=== PATIENT | female | born 1990 | race Caucasian/White ===

== ENCOUNTER → 2020-05-06 10:30 | Outpatient (CLI) | payer OTHER, SELFPAY ==
[2020-05-11 03:07] LABS: Onion <0.10 kU/L (Class 0); Walnut, (Food) <0.10 kU/L (Class 0)
[2020-05-11 07:29] LABS: Gluten <0.10 kU/L (Class 0)
== END ==
PROVIDERS: Referring Provider Otolaryngology Otolaryngology/Facial Plastic Surgery; Visit Provider Otolaryngology Otolaryngology/Facial Plastic Surgery
DX: T78.40XA Allergy, unspecified, initial encounter (principal)
CPT/HCPCS: 36415; 86003

== ENCOUNTER → 2020-12-19 15:38 | Outpatient (CLI) | payer OTHER, SELFPAY ==
--- NOTE | 2020-12-19 15:43 | CT_ITS ---
STUDY: CT ABDOMEN WITH CONTRAST REASON FOR EXAM: Female, 30 years old. Umbilical pain -- oral and IV oontrast RADIATION DOSAGE (If Supplied By Facility): CTDIvol = ( 14.74 ) mGy, DLP = ( 319.51 ) mGycm TECHNIQUE: Transaxial images were obtained post I.V. administration of Oral and amp; IV Readi-CAT and amp; 100mL Isovue-300, and IV contrast. Sagittal and coronal images were reconstructed. Individualized dose optimization techniques were used for this CT. COMPARISON: None. FINDINGS: The visualized lung bases are unremarkable. The visualized portions of the heart are within normal limits. Normal liver. Normal gallbladder and extrahepatic biliary system. Normal spleen. Normal pancreas. Normal bilateral adrenal glands. Normal right kidney. Normal left kidney. Large amount of residual food material is seen within the stomach. Normal small intestine. Normal colon. The appendix is visualized and appears normal. Normal abdominal aorta. Normal inferior vena cava. Normal retroperitoneum. Normal abdominal wall. Normal osseous structures. CT/Abdomen WITH IV Contrast IMPRESSION: Large amount of retained food particles within the stomach. Electronically Signed: David Rod MD at 9:33 EDT , Service support ,
== END ==
PROVIDERS: Referring Provider Surgery; Visit Provider Surgery
DX: R10.33 Periumbilical pain (principal)
CPT/HCPCS: 74160; Q9967

== ENCOUNTER 2020-12-22 05:58 | Day surgery (SDC) | payer OTHER, SELFPAY ==
[2020-12-22] VITALS (7 sets, daily range): BP systolic 93–127; BP diastolic 53–80; PULSE 59–80; RESP 14–18; TEMP 36.2–36.7; O2SAT 98–100; BMI 22.3
--- NOTE | 2020-12-22 | GASB_PTH ---
PATIENT: JESE MAC LOC: EN U#:[id number] AGE/SX: 30/F ROOM: RE12/22/[address]: Dr. Kade Cox MD : 1990 BED: DIS: 12/22/2020 SPEC #: [id number] RECD: 12/22/20 12:04 STATUS: ALETA CAREN #: [id number] EMILY: 12/22/20 00:[address]: Kade Cox DEPT: SURGICAL PATHOLOGY RECD BY: Matt Huff ENTERED: 12/22/20 12:36 SP TYPE: Gastric Bx OTHR DR: Alma Primary Care Phys Tissues: A - Gastric mucous membrane B - Esophageal mucous membrane C - Esophageal mucous membrane D - COLON BIOPSY Procedures: Special Stain Group II Surgery Specimen Level IV Alcian Blue/PAS (control) HEADER OPERATION: Colonoscopy, EGD ([facility] [place]) PRE-OP DIAGNOSIS: Umbilical pain, constipated, bright red blood per rectum, anal itching, dark stools TISSUE SUBMITTED: A ? Antrum biopsy for H. pylori and path, B ? Distal esophagus biopsy, C ? Mid esophagus biopsy, D ? Random colonic biopsy MICROSCOPIC DIAGNOSIS A. Gastric antrum, biopsy: Mild chronic gastritis. See comment. B. Distal esophagus, biopsy: Fragments of squamous mucosa with changes consistent with reflux. No evidence of goblet cell metaplasia. See comment. C. Mid esophagus, biopsy: Fragments of squamous mucosa with no pathologic change. D. Colon, random biopsy: Focal hyperplastic change. AM:suyapa 12/25/2020 COMMENT A. The results of immunohistochemistry for Helicobacter pylori will be reported separately ([id number]). B. Alcian blue/PAS stain with matched control supports the above diagnosis. MICROSCOPIC DESCRIPTION Slides are reviewed. GROSS DESCRIPTION A - Received in fixative is one container labeled with the patient's name and designated antrum biopsy. The specimen consists of one irregular fragment of light vale soft tissue that measures 0.4 x 0.4 x 0.1 cm. The specimen is totally submitted in one cassette. B - Received in fixative is one container labeled with the patient's name and designated distal esophagus biopsy. The specimen consists of multiple irregular fragments of light vale soft tissue that in aggregate measure 0.5 x 0.2 x 0.1 cm. The specimen is totally submitted in one cassette. C - Received in fixative is one container labeled with the patient's name and designated mid esophagus biopsy. The specimen consists of multiple irregular fragments of light vale soft tissue that in aggregate measure 0.4 x 0.4 x 0.1 cm. The specimen is totally submitted in one cassette. D - Received in fixative is one container labeled with the patient's name and designated random colonic biopsy. The specimen consists of multiple irregular fragments of light vale soft tissue that in aggregate measure 1 x 0.6 x 0.1 cm. The specimen is totally submitted in one cassette. / HOLLIE:suyapa 12/22/20 TC:3 CPT: 08314 x4, 62536
--- NOTE | 2020-12-22 06:13 | HP.PCM_ITS ---
History and Physical Date of Admission: 12/22/20 Addendum: A CT scan obtained demonstrates significant amount of food retention within the stomach. The exam is otherwise unremarkable. I recommended the patient consideration for adding an esophagogastroduodenoscopy with possible biopsy or polypectomy in addition to the planned colonoscopy. She will instructed us as to how she would like to proceed. Kade Cox M.D., F.A.C.S. 12/21/20 1349<Electronically signed by Kade Cox MD>Date Kade Cox MD cc: ~*Signed Intake Vital Signs 12/12/20 15:13 Height 5 ft 4 in Weight: 130 lb BMI 22.3 BP 150/95 H Blood Pressure Location Rt brachial Position Sitting Respiration 16 Intake Visit Reasons: UMBILICAL HERNIA Chief Complaint: umbilical hernia and rectal bleeding Senior Litigation Paralegal Required: No Is patient in pain?: Yes Allergies amoxicillin Allergy (Mild, Verified 12/12/20 15:11) Rash Medications Lactobacillus reuteri 100 million cell chewable tablet cell PO 12/12/20 [History Confirmed 12/12/20] levocetirizine 5 mg tablet 5 mg PO DAILY 12/12/20 [History Confirmed 12/12/20] norethindrone 1 mg-ethinyl estradiol 20 mcg (24)-iron 75 mg (4) tablet tablet PO 12/12/20 [History Confirmed 12/12/20] [facility] Medical History (Updated 12/12/20 @ 18:[address] Kade Cox MD) Allergies Anal itching Bright red blood per rectum Constipated Umbilical pain Surgical History H/O wisdom tooth extraction Family History Grandmother Diabetes Father Hypertension Social History Smoking Status: Never smoker alcohol intake: current alcohol intake frequency: a few times a week HPI HPI HPI: JESE MAC, is a 30 F who presents to the office today for surgical consultation regarding a symptomatic umbilical hernia and intermittent rectal bleeding. The patient is referred by Dr. Madan Garza and a written copy of my surgical consult recommendations will return to him. Patient notes a couple separate issues. For a couple weeks she has had a pinching pain noted to the umbilicus. She did have Covid-19 with coughing. She herself cannot feel a mass or bulge. For a longer period of time she has had intermittent rectal bleeding. By report she had a colonoscopy approximately 6 years ago. She has been diagnosed as having IBS. She has significant constipation sometimes not moving her bowels for up to a week. She complains of burning at the anus and occasional bright red blood. What is of note is that more recently she is also had 3 separate episodes of very dark stools. She does not note any particular indigestion. No epigastric pain. She does not take any acid reducing medications. She has not had any nausea or vomiting. She otherwise enjoys good health. She is able to run for exercise. She is not had any unexpected weight loss. ROS General General: No weight change, appetite, fatigue, colon cancer, breast cancer or weakness HEENT HEENT: No difficulty swallowing, eye injury, eye surgery, swollen glands or hoarseness Endo Endocrine: No thyroid disease, diabetes mellitus, thyroid cancer, Hair loss, heat intolerance or cold intolerance Skin Skin: No rash or changing moles Breast Breast: No left breast lump, right breast lump, nipple discharge, breast pain, abnormal mammogram, abnormal US or breast enlargement Musc Musculoskeletal: No back problems, arthritis, rheumatoid arthritis, gout or joint pain Cardio Cardiovascular: No murmur, pacemaker, heart disease, atrial fibrillation, high blood pressure, heart attack, heart stent, palpitations, shortness of breat with exertion or chest pain Psych Psychiatric: No depression, anxiety or hearing voices Resp Respiratory: No shortness of breath, No sleep apnea, No cough, No COPD, Yes asthma, No emphysema and No wheezing Gastro Gastrointestinal: Yes abdominal pain, No nausea or vomiting, Yes diarrhea, Yes constipation, Yes blood in stool, No acid reflux, Yes hemorrhoids, No ulcers, No gallbladder problem and Yes black,tarry stools [place] Hematologic: No blood thinners, No blood disorders, No bleeding, No anemia and No blood clots Neuro Neurologic: No system reviewed and no additional complaints, except as documented, No as per HPI, No abnormal gait, No abnormal hearing, No abnormal movements, No abnormal speech, No behavioral changes, No burning sensations, No confusion, No convulsions, No disequilibrium, No dizziness, No localized weakness, No frequent falls, No headache(s), No lack of coordination, No loss of vision, No memory loss, No numbness, No other visual disturbances, No radicular pain, No restless legs, No sensory deficit, No syncope, No tingling, No tremor(s), No weakness and No other Exam Const General: cooperative, healthy appearing, comfortable, no acute distress and well developed Nutritional Appearance: average body habitus Orientation: awake [facility] Head: normal to inspection Eyes General: appearance normal, both eyes and all related structures Resp Effort & Inspection: normal respiratory effort Auscultation: clear to auscultation bilaterally Cardio Rate: regular rate Rhythm: regular rhythm GI Palpation: soft and no hepatosplenomegaly Other: Focal tenderness at the umbilicus, not able to palpate or visualize a di stinct defect, slightly tender just superior to the right of the umbilicus. No particular focal mass nothing reducible. The patient is uncomfortable when she is upright and having the area checked. She is less uncomfortable supine. No rebound or guarding. Normal bowel sounds On clinical exam the patient is noted to have stool in her colon particularly the sigmoid colon is easily palpable External anus not remarkable. No external hemorrhoids. No gross bleeding identified. Digital exam some mild internal hemorrhoids. No obvious palpable fissure. No extreme discomfort to exam. No blood on the examining glove. Musc Cervical Spine: normal cervical lordosis Skin General: no rashes or lesions noted Neuro General: patient alert, patient awake and patient oriented x3 Extrem General: no calf tenderness Psych Appearance: grossly normal COVID (Procedure Consent) Procedure Criteria Procedure Criteria: Yes Elective The surgeon/proceduralist and patient have discussed in detail the risk of exposure to and/or potential harm posed by the COVID-19 virus with having a surgery/procedure at this time versus the risk of delaying the surgery/procedure. It is not possible to know either the risk of de laying the surgery or procedure or chance of getting an infection with perfect accuracy, but a joint decision was made between the patient and the surgeon/proceduralist to proceed at this time with the scheduled surgery/procedure as indicated on the consent form. Assessment and Plan Assessment and Plan (1) Umbilical pain: Status: Acute (2) Constipated: Status: Acute Qualifiers: Constipation type: unspecified constipation type Qualified Code(s): K59.00 - Constipation, unspecified (3) Bright red blood per rectum: Status: Acute (4) Anal itching: Status: Acute (5) Dark stools: Status: Acute Orders: Orders: Abdomen WITH IV Contrast Today R10.33 Colonoscopy Today K59.00, K62.5, L29.0 Plan - Dr. Kade Cox MD: 30-year-old female with a variety of presenting concerns. More recently she has had very focal pain to the umbilicus. She did have COVID-19 and was doing a significant amount of coughing. Clinically she is tender to palpation right of the umbilicus but I am not able to feel a mass. Patient might have a very small umbilical defect but I cannot clinically decipher that at this time. I do recommend abdominal CT to evaluate the abdominal wall and confirm or not a intra-abdominal process at that site. Change of bowel habits with 3 episodes of dark-colored stools. This seems somewhat unusual out of place for her presentation. She does not have any other upper GI symptoms. I offered her consideration for possibly adding an esophagogastroduodenoscopy onto her colonoscopy. She will consider the benefit risk. Anal discomfort. Rectal bleeding. Dark-colored stools. Severe constipation. On my clinical examination I am not detecting anything immediately at the anus. I do recommend to her a colonoscopy for very careful inspection of the bowel biopsy if indicated and careful inspection of the anal rectal area. She has had an opportunity to ask and have questions answered. She is interested in pursuing that evaluation. Pending results of the above testing the patient might benefit from a umbilical exploration/hernia repair. She is focally tender at that site and might have a very small defect. We will follow as appropriate and I appreciate the opportunity of assisting with her surgical care Copy: Dr. Madan Cox M.D., F.A.C.S. Coding Level of Care Code 49674 Diagnoses Umbilical pain R10.33 Constipated K59.00 Constipation type: unspecified constipation type Bright red blood per rectum K62.5 Anal itching L29.0 Dark stools R19.5 See the above addendum. The CT scan of the abdomen did not show an umbilical hernia. It demonstrated significant amount of retained food within the stomach. After discussion with the patient we will add a esophagogastroduodenoscopy to her colonoscopy and attempt to try to identify source of dark-colored stools anal itching bright red stools and umbilical pain. It is still possible that a small umbilical defect is present that the CAT scan cannot image Kade Cox M.D., F.A.C.S.
[2020-12-22 06:28] LABS: Internal QC Validated? YES +Cl - CLEAR BKGD; Pregnancy, Urine Negative Negative
[2020-12-22] MEDS: Lactated Ringers 1,000 ML 100 ML IV (06:40)
--- NOTE | 2020-12-22 07:00 | IMM_PTH ---
PATIENT: JESE MAC LOC: EN U#:[id number] AGE/SX: 30/F ROOM: RE12/22/[address]: Dr. Kade Cox MD : 1990 BED: DIS: 12/22/2020 SPEC #: [id number] RECD: 12/22/20 13:44 STATUS: ALETA RELuis Daniel #: [id number] EMILY: 12/22/20 07:[address]: Kade Cox DEPT: IMMUNOHISTOCHEMISTRY RECD BY: Jasmyn Rush ENTERED: 12/22/20 13:45 SP TYPE: IMMUNO OT DR: No Primary Care Phys Tissues: A - Stomach, NOS Procedures: H Pylori (initial) PHYSICIAN & INSTITUTION [place] [id number] SPECIMEN INFORMATION: Tissue Source: A ? Antrum biopsy Clinical Info: Umbilical pain, constipated, bright red blood per rectum, anal itching, dark stools Specimen Number: [id number] CPT code: 59605 METHODOLOGY: Deparaffinized sections of prefer/formalin-fixed tissue or PAP/DQ stained slides are incubated with monoclonal/polyclonal antibodies/oligonucleotide probes. Localization is made via biotin free immunoperoxidase method. Appropriate controls are performed and reacted as expected. Results on target cell population are indicated in the following table: RESULTS: ANTIBODY / CLONE RESULT Block A H Pylori (polyclonal) negative These tests were developed and their performance characteristics determined by [facility]. They may not have been cleared or approved by the U.S. Food and Drug Administration. The FDA has determined that such clearance or approval is not necessary. INTERPRETATION: A. Antrum biopsy: Negative for Helicobacter pylori organisms. AM:suyapa 12/26/2020
--- NOTE | 2020-12-22 07:28 | OP.EGD_ITS ---
Patient Name: Daylin High Procedure Date: 12/22/2020 6:50 AM Date of : 1990 Age: 30 Procedure: Upper GI endoscopy Indications: Periumbilical abdominal pain Providers: Kade Cox MD Medicines: See the Anesthesia note for documentation of the administered medications Complications: No immediate complications. Procedure: Pre-Anesthesia Assessment: - Prior to the procedure, a History and Physical was performed, and patient medications and allergies were reviewed. The patient's tolerance of previous anesthesia was also reviewed. The risks and benefits of the procedure and the sedation options and risks were discussed with the patient. All questions were answered, and informed consent was obtained. Prior Anticoagulants: The patient has taken no previous anticoagulant or antiplatelet agents. ASA Grade Assessment: I - A normal, healthy patient. After reviewing the risks and benefits, the patient was deemed in satisfactory condition to undergo the procedure. After obtaining informed consent, the endoscope was passed under direct vision. Throughout the procedure, the patient's blood pressure, pulse, and oxygen saturations were monitored continuously. The gastroscope was introduced through the mouth, and advanced to the second part of duodenum. The upper GI endoscopy was accomplished without difficulty. The patient tolerated the procedure well. Scope In: 7:00:24 AM Scope Out: 7:06:23 AM Total Procedure Duration Time 0 hours 5 minutes 59 seconds Findings: A small hiatal hernia was present. The distal esophagus was normal. Biopsies were taken with a cold forceps for histology. The middle third of the esophagus was normal. Biopsies were taken with a cold forceps for histology. The entire examined stomach was normal. Biopsies were taken with a cold forceps for histology. The examined duodenum was normal. Biopsies were taken with a cold forceps for histology. Impression: - Small hiatal hernia. - Normal distal esophagus. Biopsied. - Normal middle third of esophagus. Biopsied. - Normal stomach. Biopsied. - Normal examined duodenum. Biopsied. Recommendation: - Discharge patient to home. - Resume previous diet. - Continue present medications. - Await pathology results. - Telephone my office for pathology results in 1 week. Procedure Code(s): --- Professional --- 53835, Esophagogastroduodenoscopy, flexible, transoral; with biopsy, single or multiple Diagnosis Code(s): --- Professional --- K44.9, Diaphragmatic hernia without obstruction or gangrene R10.33, Periumbilical pain CPT copyright 2017 [employer]. All rights reserved. The codes documented in this report are preliminary and upon sap enterprise portal consultant review may be revised to meet current compliance requirements. Kade Cox MD 12/22/2020 7:27:53 AM This report has been signed electronically. Number of Addenda: 0 Note Initiated On: 12/22/2020 6:50 AM
--- NOTE | 2020-12-22 07:29 | OP.CCLET_ITS ---
12/22/2020 Gloria Post [facility] [address] [place] [address] Re : Upper GI endoscopy procedure for Replaced By [facility] Dear Dr. Post This procedure was performed on Tuesday, December 22, 2020. My impressions and recommendations are as follows: Impressions : - Small hiatal hernia. - Normal distal esophagus. Biopsied. - Normal middle third of esophagus. Biopsied. - Normal stomach. Biopsied. - Normal examined duodenum. Biopsied. Recommendations : - Discharge patient to home. - Resume previous diet. - Continue present medications. - Await pathology results. - Telephone my office for pathology results in 1 week. My findings are described in the full procedure note, which is enclosed. If I can be of further assistance, please feel free to contact me at Doctor phone number(s): Work: . Sincerely, Kade Cox MD 12/22/2020 7:27:53 AM This report has been signed electronically.
--- NOTE | 2020-12-22 07:35 | OP.CCLET_ITS ---
12/22/2020 Gloria Post [facility] [address] [place] [address] Re : Colonoscopy procedure for [facility] Dear Dr. Post This procedure was performed on Tuesday, December 22, 2020. My impressions and recommendations are as follows: Impressions : - Non-thrombosed internal hemorrhoids and internal hemorrhoids (Grade I) found on digital rectal exam. - The entire examined colon is normal. Biopsied. - Tortuous colon. Recommendations : - Discharge patient to home. - Resume previous diet. - Continue present medications. - Flagyl (metronidazole) 250 mg PO TID for 5 days. Because of itching and bleeding will treat with short course metronidazole If symptoms persistent, consider suppositories or diltiazem cream - Repeat colonoscopy at age 49 for screening purposes. My findings are described in the full procedure note, which is enclosed. If I can be of further assistance, please feel free to contact me at Doctor phone number(s): Work: . Sincerely, Kade Cox MD 12/22/2020 7:35:06 AM This report has been signed electronically.
--- NOTE | 2020-12-22 07:35 | OP.COLON_ITS ---
Patient Name: Daylin High Procedure Date: 12/22/2020 7:06 AM Date of : 1990 Age: 30 Procedure: Colonoscopy Indications: Rectal bleeding Providers: Kade Cox MD Medicines: See the Anesthesia note for documentation of the administered medications Patient Profile: Last Colonoscopy: none. The patient's first colonoscopy is today. Complications: No immediate complications. Procedure: Pre-Anesthesia Assessment: - Prior to the procedure, a History and Physical was performed, and patient medications and allergies were reviewed. The patient's tolerance of previous anesthesia was also reviewed. The risks and benefits of the procedure and the sedation options and risks were discussed with the patient. All questions were answered, and informed consent was obtained. Prior Anticoagulants: The patient has taken no previous anticoagulant or antiplatelet agents. ASA Grade Assessment: I - A normal, healthy patient. After reviewing the risks and benefits, the patient was deemed in satisfactory condition to undergo the procedure. After I obtained informed consent, the scope was passed under direct vision. Throughout the procedure, the patient's blood pressure, pulse, and oxygen saturations were monitored continuously. The Colonoscope was introduced through the anus and advanced to the cecum, identified by appendiceal orifice and ileocecal valve. The colonoscopy was performed without difficulty. The patient tolerated the procedure well. The quality of the bowel preparation was good. The ileocecal valve and the appendiceal orifice were photographed. Scope In: 7:09:59 AM Scope Withdrawal Time 0 hours 6 minutes 2 seconds Scope Out: 7:23:01 AM Total Procedure Duration Time 0 hours 13 minutes 2 seconds Findings: The digital rectal exam findings include non-thrombosed internal hemorrhoids and internal hemorrhoids (Grade I). The colon (entire examined portion) appeared normal. Biopsies for histology were taken with a cold forceps from the entire colon for evaluation of microscopic colitis. The colon (entire examined portion) was moderately tortuous. Impression: - Non-thrombosed internal hemorrhoids and internal hemorrhoids (Grade I) found on digital rectal exam. - The entire examined colon is normal. Biopsied. - Tortuous colon. Recommendation: - Discharge patient to home. - Resume previous diet. - Continue present medications. - Flagyl (metronidazole) 250 mg PO TID for 5 days. Because of itching and bleeding will treat with short course metronidazole If symptoms persistent, consider suppositories or diltiazem cream - Repeat colonoscopy at age 49 for screening purposes. Procedure Code(s): --- Professional --- 50562, Colonoscopy, flexible; with biopsy, single or multiple Diagnosis Code(s): --- Professional --- K64.0, First degree hemorrhoids K62.5, Hemorrhage of anus and rectum Q43.8, Other specified congenital malformations of intestine CPT copyright 2017 [employer]. All rights reserved. The codes documented in this report are preliminary and upon sampler and test preparer review may be revised to meet current compliance requirements. Kade Cox MD 12/22/2020 7:35:06 AM This report has been signed electronically. Number of Addenda: 0 Note Initiated On: 12/22/2020 7:06 AM
== END 2020-12-22 08:22 | disposition home or self-care (01) ==
LOC: EN 06:00 → AC 06:01
PROVIDERS: Anesthesiology; Visit Provider Surgery
PROC: 0DJD8ZZ Inspection of Lower Intestinal Tract, Via Natural or Artificial Opening Endoscopic (ICD-10-PCS; CPT 45378; principal; 2020-12-22 06:55)
DX: K44.9 Diaphragmatic hernia without obstruction or gangrene (principal); K42.9 Umbilical hernia without obstruction or gangrene; K29.50 Unspecified chronic gastritis without bleeding; K64.0 First degree hemorrhoids; Q43.8 Other specified congenital malformations of intestine; Z86.16 Personal history of COVID-19; Z79.899 Other long term (current) drug therapy
CPT/HCPCS: 43239; 45380; 81025; 88305; 88313; 88342; J7120; J2405

== ENCOUNTER 2021-03-01 10:10 | Outpatient (CLI) | payer OTHER, SELFPAY ==
--- NOTE | 2021-03-01 10:16 | NM_ITS ---
CLINICAL: 30-year-old female with reported history of abdominal pain and bloating. SEMI-SOLID PHASE 99m Tc SULFUR COLLOID GASTRIC EMPTYING STUDY COMPARISON: None available FINDINGS: The patient was administered 1.0 mCi of 99m Tc sulfur colloid mixed with oatmeal and consumed per os. Image acquisitions in the anterior-posterior projections for a total of 60 minutes. There is prompt visualization of the stomach. There is no gastroesophageal reflux identified. First order kinetics are maintained throughout the duration of the acquisitions. The T ? linear fit was calculated to be 75.86 minutes, (Normal: 12-56 minutes). NM/Gastric Emptying Study IMPRESSION: 1. ABNORMAL 99m Tc sulfur colloid semi-solid phase (oatmeal) gastric emptying imaging examination. A. There is delayed semi-solid phase gastric emptying compared to normal controls with demonstrated first order kinetics throughout all components of the examination. (Celso et al, J Nucl Med Tech 38: 186, 2010). Electronically Signed: Jon Cuevas DO at 23:02 EST Tel , Service support ,
== END 2021-03-01 23:59 | disposition short-term general hospital (02) ==
LOC: NM 10:13
PROVIDERS: Referring Provider Internal Medicine Gastroenterology; Visit Provider Internal Medicine Gastroenterology
DX: R14.0 Abdominal distension (gaseous) (principal)
CPT/HCPCS: 78264; A9541

== ENCOUNTER 2021-04-10 15:38 | Outpatient (CLI) | payer OTHER, SELFPAY ==
[2021-04-10 16:46] LABS: Absolute Lymphocyte Count 3.13 X10^3/uL (0.83-4.51); Absolute Neutrophil Count 4.6 X10^3/uL (2.0-7.7); Basophil# 0.03 X10^3/uL; Basophil% 0.3 % (0-1); Eosinophil# 0.28 X10^3/uL; Eosinophils% 3.2 % (0-5); Hematocrit 43.6 % (37-47); Hemoglobin 14.6 g/dL (12.0-15.0); Lymphocyte # 3.13 X10^3/ul (0.83-4.51); Lymphocyte % 35.9 % (19-41); Mean Corp Hgb Conc 33.5 g/dL (32-36); Mean Corpuscular Hgb 30.2 pg (27.0-32.0); Mean Corpuscular Volume 90.1 fL (81-99); Mean Platelet Vol. 11.2 fl (6.2-12.0); Monocyte# 0.65 X10^3/uL; Monocyte% 7.5 % (0-10); NRBC Flagged by Analyzer 0 % (0-5); Neutrophil # 4.61 X10^3/uL (2.7-7.7); Neutrophil % 52.9 % (47-70); Platelet Count 292 K/mm3 (150-450); RBC Distribution Width SD 39.7 fl (35.1-43.9); Red Blood Count 4.84 M/mm3 (4.2-5.4); White Blood Count 8.7 K/mm3 (4.4-11.0)
[2021-04-10 17:37] LABS: Erythrocyte Sedimentation Rate < 1 mm/hr (0-30)
[2021-04-10 17:47] LABS: ALB/GLOB Ratio 1.1 RATIO (0.9-2.4); AST(SGOT) 18 U/L (15-37); Alanine Aminotransfer ALT/SGPT 33 U/L (13-56); Albumin, Serum 4.1 g/dL (3.2-5.0); Alkaline Phosphatase 76 U/L (45-117); Anion Gap 3 (5-15); BUN 12 mg/dL (7-18); BUN/Creat Ratio 18.2 RATIO (10-20); CRP < 2.90 mg/L (0.0-3.0); Chloride 108 mmol/L (98-107); Creatinine, Serum 0.66 mg/dL (0.55-1.02); EST Glomerular Filtration Rate 111 mL/min (>60); Est Glom Filt Rate - Afr Amer 134 mL/min (>60); Free T3 2.8 pg/mL (2.18-3.98); Globulin 3.6 g/dL (2.2-4.2); Glucose 73 mg/dL (74-106); LDH 203 U/L (84-246); Potassium 3.9 mmol/L (3.5-5.1); Protein, Total 7.7 g/dL (6.4-8.2); Sodium Level 140 mmol/L (136-145); T4 Free Direct 0.79 ng/dL (0.76-1.46); Thyroid Stim Hormone (TSH) 1.96 uIU/mL (0.358-3.74)
[2021-04-10 17:54] LABS: Hemoglobin A1c 5.2 % (3.8-5.6)
[2021-04-12 15:08] LABS: Anti-Centromere B Ab <0.2 AI (0.0-0.9); Anti-Chromatin 0.2 AI (0.0-0.9); Anti-Jo <0.2 AI (0.0-0.9); Anti-Scleroderma-70 AB <0.2 AI (0.0-0.9); RNP Ab 0.2 AI (0.0-0.9); SJOGREN'S Anti-SS-A test < 0.2 AI (0.0-0.9); SJOGREN'S Anti-SS-B test < 0.2 AI (0.0-0.9); Smith Ab <0.2 AI (0.0-0.9)
[2021-04-12 17:37] LABS: Anti-dsDNA Ab <1 IU/mL (0-9)
[2021-04-13 10:09] LABS: Albumin 4.4 g/dL (2.9-4.4); Alpha-1-Globulins 0.3 g/dL (0.0-0.4); Alpha-2-Globulins 0.8 g/dL (0.4-1.0); Cytoplasmic Ab (C-ANCA) <1:20 titer (Neg:<1:20); Endomysial Antibody IgA Negative (Negative); Immunoglobulin A 178 mg/dL (87-352); Immunoglobulin G 945 mg/dL (586-1602); Immunoglobulin M 147 mg/dL (26-217); PROEL- TOTAL PROTEIN 7.4 g/dL (6.0-8.5)
[2021-04-13 13:14] LABS: Perinuclear Ab (P-ANCA) <1:20 titer (Neg:<1:20); t-Transglutaminase IgA <2 U/mL (0-3)
== END 2021-04-10 23:59 | disposition home or self-care (01) ==
LOC: LAB 15:39
PROVIDERS: Visit Provider Nurse Practitioner Adult Health
DX: K30 Functional dyspepsia (principal); K59.09 Other constipation
CPT/HCPCS: 36415; 80053; 82784; 83036; 83516; 83615; 84165; 84439; 84443; 84481; 85025; 85652; 86140; 86225; 86235; 86255; 86256; 86334

== ENCOUNTER 2022-07-15 19:00 | Inpatient (IN) | payer OTHER, SELFPAY ==
[2022-07-15 19:08] VITALS: BMI 30.2
[2022-07-15 19:27] VITALS: BP 132/80; PULSE 96
[2022-07-15] MEDS: Lactated Ringers 1,000 ML 50 ML IV (19:45)
[2022-07-15 19:55] VITALS: PULSE 106; O2SAT 97
[2022-07-15 19:56] LABS: Absolute Lymphocyte Count 3.12 X10^3/uL (0.83-4.51); Absolute Neutrophil Count 9.3 X10^3/uL (2.0-7.7); Basophil# 0.04 X10^3/uL; Basophil% 0.3 % (0-1); Eosinophil# 0.15 X10^3/uL; Eosinophils% 1.1 % (0-5); Hematocrit 36.3 % (37-47); Hemoglobin 11.9 g/dL (12.0-15.0); Lymphocyte # 3.12 X10^3/ul (0.83-4.51); Lymphocyte % 22.9 % (19-41); Mean Corp Hgb Conc 32.8 g/dL (32-36); Mean Corpuscular Volume 91.4 fL (81-99); Mean Platelet Vol. 12.3 fl (6.2-12.0); Monocyte# 0.94 X10^3/uL; Monocyte% 6.9 % (0-10); NRBC Flagged by Analyzer 0 % (0-5); Neutrophil # 9.25 X10^3/uL (2.7-7.7); Neutrophil % 68.1 % (47-70); Platelet Count 223 K/mm3 (150-450); RBC Distribution Width CV 12.7 % (11.6-14.6); RBC Distribution Width SD 41.7 fl (35.1-43.9); Red Blood Count 3.97 M/mm3 (4.2-5.4); White Blood Count 13.6 K/mm3 (4.4-11.0)
[2022-07-15 20:14] LABS: ALB/GLOB Ratio 0.7 RATIO (0.9-2.4); AST(SGOT) 29 U/L (15-37); Alanine Aminotransfer ALT/SGPT 22 U/L (13-56); Albumin, Serum 2.5 g/dL (3.2-5.0); Alkaline Phosphatase 154 U/L (45-117); Anion Gap 10 (5-15); BUN 9 mg/dL (7-18); BUN/Creat Ratio 12.7 RATIO (10-20); Calcium,Total 8.5 mg/dL (8.5-10.1); Chloride 109 mmol/L (98-107); Creatinine, Serum 0.71 mg/dL (0.55-1.02); EST Glomerular Filtration Rate 101 mL/min (>60); Est Glom Filt Rate - Afr Amer 122 mL/min (>60); Estimated Creatinine Clearance 97.32 ml/min; Globulin 3.6 g/dL (2.2-4.2); Glucose 124 mg/dL (74-106); Potassium 3.6 mmol/L (3.5-5.1); Protein, Total 6.1 g/dL (6.4-8.2); Sodium Level 140 mmol/L (136-145)
[2022-07-15] MEDS: Acetaminophen 500 MG Tablet PO (20:39)
[2022-07-15] MEDS: 0.9% Normal Saline Single 100 ML IV.SOLN. INTRA-UTER (20:41)
--- NOTE | 2022-07-15 20:43 | PCM.HP.OB ---
HPI - General General Date of Admission: 07/15/22 Date of Service: 07/15/22 Chief Complaint: gHTN HPI Narrative JESE MAC, is a 32 F at 37 wk gestation who presents for scheduled IOL for gHTN. She has a mild CRISTINA. No vision changes or RUQ pain. Some irregular ctx's. No vb, lof. Good FM. Maternal Data Information Final BALDO: 08/05/22 PFS PFS Medical History (Updated 07/15/22 @ 20:[address] Kamala Matt, DO) Allergies Anal itching Asthma Bright red blood per rectum Constipated Dilation of stomach IBS (irritable bowel syndrome) Raynaud disease Umbilical pain Wears contact lenses Wears glasses Home Medications Lactobacillus reuteri 100 million cell chewable tablet 1 cell PO DAILY digestive enzyme 12/12/20 [History Last Taken 07/15/22] vit 168-iron 27 mg-folic acid 800 mcg-omega3 235 mg capsule (One-A-Day -1) 1 cap PO DAILY 04/10/21 [History Last Taken 07/15/22] Zyrtec 10 mg PO.IVFORM DAILY allergies 07/15/22 [History Last Taken 07/15/22] Allergy/AdvReac Type Severity Reaction Status Date / Time banana Allergy Intermediate unknown Verified 07/15/22 19:38 house dust mite Allergy Intermediate unknown Verified 07/15/22 19:38 beatriz Allergy Intermediate unknown Verified 07/15/22 19:38 pineapple Allergy Intermediate unknown Verified 07/15/22 19:38 amoxicillin Allergy Mild Rash Verified 07/15/22 19:38 Family History Grandmother Diabetes Father Hypertension Surgical History H/O wisdom tooth extraction Social History (Reviewed 04/10/21 @ 15:36 by Shalini Mcdonnell FRONT END JAVA DEVELOPER, FRONT END JAVA DEVELOPER-C) Smoking Status: Never smoker alcohol intake: current alcohol intake frequency: a few times a week History Addt'l History: Pre e labs on 07/12/22 WNL GBS positive 1 hr GTT 133 Syphilis NR RI Hep B neg Hep C neg HIV NR A positive GC/CT neg NST FHR Rate Baby A Baseline: 150 Variability:: Moderate Accelerations:: 15 x 15 Decelerations:: None NST Reactive:: Yes FHR Category:: Category I Uterine Activity:: No regular ctx's Vital Signs Vital Signs Vital Signs: 07/15/22 19:27 07/15/22 19:27 07/15/22 19:55 Pulse Rate 96 106 H Blood Pressure 132/80 H BP Systolic 132 BP Diastolic 80 Pulse Ox 07/15/22 19:55 Pulse Rate Blood Pressure BP Systolic BP Diastolic Pulse Ox 97 Weight Weight: 176 lb Body Mass Index (BMI) 30.2 Physical Exam Const alert and no apparent distress General Appearance: comfortable HEENT normocephalic Resp normal respiratory effort Extremity Extremity Narrative: Trace edema bilaterally Labs Labs Labs: Blood Type Pending Antibody Screen Pending Hct 36.3 % (37-47) L Hgb 11.9 g/dL (12.0-15.0) L Syphilis Total Ab Pending Miscellaneous Test Assessment & Plan (1) 37 weeks gestation of : PLAN: Admit for routine intrapartum care. Intracervical barger placed in usual fashion and filled with 30 cc saline. Start pitocin given espinoza score. Plans for epidural for pain control. Ancef for GBS pos. CEFM. Pelvis adequate and EFW AGA. Anticipate vaginal delivery. Closely monitor BP and for signs and symptoms of pre e. Pre e labs on admission. (2) Gestational hypertension: (3) Positive GBS test: (4) Primiparous: (5) Encounter for planned induction of labor:
[2022-07-15 20:49] VITALS: BP 137/83; PULSE 95; TEMP 36.8
[2022-07-15] MEDS: Oxytocin 15 Units/NS 250ml 15 UNITS/250 ML IV.SOLN 2 UNITS IV (20:55)
[2022-07-15 20:57] LABS: Syphilis Antibodies Non-reactive
[2022-07-15] MEDS: Cefazolin 2 GM in 0.9% Normal Saline 100 ML IV (21:29)
[2022-07-15 22:03] VITALS: BP 130/82; PULSE 82
[2022-07-15 22:21] LABS: Protein, Urine (Random) 13.5 mg/dL (<11.9); Protein:Creat Ratio 202 mg/g CRE (0-200)
[2022-07-15] MEDS: 0.9% Saline Lock 10 ML Syringe IV (22:39)
[2022-07-15] MEDS: Ondansetron 4 MG/2 ML Vial IV (22:39)
[2022-07-15 23:13] VITALS: BP 129/81; PULSE 81; TEMP 36.7
[2022-07-15] MEDS: fentaNYL 100 MCG/2 ML Ampul IV (23:28)
[2022-07-16] VITALS (47 sets, daily range): BP systolic 104–146; BP diastolic 52–91; PULSE 70–127; RESP 15; TEMP 36.3–36.9; O2SAT 97–100
[2022-07-16] MEDS: fentaNYL 100 MCG/2 ML Ampul IV (02:37)
[2022-07-16] MEDS: LACTATED RINGERS 500 ML 999 ML IV (04:23)
[2022-07-16] MEDS: fentaNYL-bupivacaine (epidural) 100 ML BAG EPIDURAL ×3 (05:33→14:13)
[2022-07-16] MEDS: Cefazolin 1 GM/50 ML BAG IV ×2 (05:33→13:40)
[2022-07-16] MEDS: Lactated Ringers 1,000 ML 200 ML IV ×2 (08:00→13:40)
--- NOTE | 2022-07-16 09:23 | PN.OBGYN_ITS ---
Subjective Subjective Resting in bed with epidural Objective Data Objective Data Vital Signs: Vital Signs Temp Pulse BP Pulse Ox 97.9 F 89 115/67 100 07/16/22 07:18 07/16/22 08:37 07/16/22 08:37 07/16/22 07:14 Weight: 176 lb Body Mass Index (BMI) 30.2 Intake & Output: Intake and Output for Last 24 Hours 07/14/22 07/15/22 07/16/22 23:59 23:59 23:59 Intake Total 209.00 / 209.00 1982.95 / 1981. Output Total 500 / 500 Balance 209.00 / 209.00 1482.95 / 1482.95 Lab / Micro Data Result Diagrams: 07/15/22 19:45 07/15/22 19:45 Labs: Laboratory Results - last 24 hr 07/15/22 19:45: WBC 13.6 H, RBC 3.97 L, Hgb 11.9 L, Hct 36.3 L, MCV 91.4, MCH 30.0, MCHC 32.8, RDW Std Deviation 41.7, RDW Coeff of Forrest 12.7, Plt Count 223, MPV 12.3 H, Immature Gran % (Auto) 0.700, Neut % (Auto) 68.1, Lymph % (Auto) 22.9, [place] % (Auto) 6.9, Eos % (Auto) 1.1, Baso % (Auto) 0.3, Absolute Neuts (auto) 9.3 H, Absolute Lymphs (auto) 3.12, Nucleated RBC % 0 07/15/22 19:45: Blood Type A POSITIVE, Antibody Screen NEGATIVE 07/15/22 19:45: Syphilis Total Ab Non-reactive 07/15/22 19:45: Sodium 140, Potassium 3.6, Chloride 109 H, Carbon Dioxide 21.0, Anion Gap 10, BUN 9, Creatinine 0.71, Estim Creat Clear Calc 97.32, Est GFR (MDRD) Af Amer 122, Est GFR (MDRD) Non-Af 101, BUN/Creatinine Ratio 12.7, Glucose 124 H, Calcium 8.5, Total Bilirubin 0.20, AST 29, ALT 22, Alkaline Phosphatase 154 H, Total Protein 6.1 L, Albumin 2.5 L, Globulin 3.6, [place] min/Globulin Ratio 0.7 L 07/15/22 21:37: U Random Total Protein 13.5 H, Urine Creatinine 66.70, Protein/Creatinin Ratio 202 H Physical Exam Manual OB Exam: presentation cephalic, dilated 5, effaced 80 and station - 1 NST FHR Rate Baby A Baseline: 125 Variability:: Moderate Accelerations:: 15 x 15 Decelerations:: None NST Reactive:: Appropriate for gestational age FHR Category:: Category I Uterine Activity:: Every 2-3 minutes. Pitocin at 18mu Assessment & Plan (1) Encounter for planned induction of labor: PLAN: Plan 1) Active labor progressing 2) Epidural effective for pain management 3) Category 1 FHT 4) Continue with active management Pitocin per protocol
[2022-07-16] MEDS: Ondansetron 4 MG/2 ML Vial IV (13:40)
[2022-07-16] MEDS: Oxytocin 10 UNITS/ML Vial IM (16:35)
[2022-07-16] MEDS: Oxytocin 15 Units/NS 250ml 15 UNITS/250 ML IV.SOLN 83 UNITS IV (16:35)
--- NOTE | 2022-07-16 17:59 | EX.PCM.OBRPT ---
Assessment & Plan (1) Vaginal delivery: (2) First degree perineal laceration: Maternal Data Information BALDO Calculator Estimated Delivery Date Method Current WG Current Estimate 08/05/22 Manual 37w 1d Vaginal Delivery Maternal Presentation Maternal Presentation: . Type of Induction: Pitocin and Stanley Bulb Operative Information Date of Procedure: 07/16/22 Pre-Operative Diagnosis: Induction of labor Post-Operative Diagnosis: Surgery / Procedure Performed: Spontaneous Vaginal Delivery Type of Anesthesia: Epidural Estimated Blood Loss: 400ml Time of Delivery: 16:31 Findings Description of Procedure: Progressed to complete with urge to push. Epidural for pain management. of viable female over first degree perineal laceration. APGARS 8,9 respectively. Infant head delivered with shoulders to follow into vagina but not forthcoming. Shoulder dystocia not present but shoulders undelivered, poor pushing efforts, attempt to remove posterior arm to assist with delivery and body forthcoming. Placed on maternal abdomen, no cry. Cord clamped and cut and infant taken to radiant warmer with waiting nursing staff. Mouth and nares suctioned for secretions, strong cry, tone and color. Pitocin started for active 3rd stage management. Placenta not coming and at cervical os, manual removal at cervical os and in vagina, no entrance into uterus. Placenta intact via 3 vessel cord. Perineum inspected and revealed 1st degree perineal laceration. Repaired with 3.0 vicryl rapide and lidocaine. Fundus firm and hemostasis achieved. EBL 400ml . Mom and baby stable, planning to breastfeed. Family bonding well. notified of delivery Presentation: Vertex Amniotic Membrane Rupture Type: Spontaneous Amniotic Fluid Description: Clear Placental Delivery Description: Manual Removal Placenta Disposition: [facility] Cord Vessel Description: 3 Vessels Cord Entanglement: None Infant A Gender: Female (1 minute): 8 (5 minute): 9 Delayed Cord Clamping: No Post Vaginal Delivery Medications Given After Delivery: IV Pitocin and IM Pitocin Episiotomy Description: None Laceration: Perineal Extension/lac and 1st degree Complication Complications: - (manual removal of placenta)
[2022-07-16] MEDS: Acetaminophen 500 MG Tablet 1000 MG PO (18:10)
[2022-07-16] MEDS: Ibuprofen 600 MG Tablet PO (21:29)
[2022-07-17] VITALS (11 sets, daily range): BP systolic 112–142; BP diastolic 69–92; PULSE 76–93; RESP 16–18; TEMP 36.6–37; O2SAT 97–100
[2022-07-17] MEDS: Acetaminophen 500 MG Tablet 1000 MG PO ×3 (01:18→19:41)
[2022-07-17 04:27] LABS: Hematocrit 33.4 % (37-47); Mean Corp Hgb Conc 32.9 g/dL (32-36); Mean Corpuscular Hgb 30.4 pg (27.0-32.0); Mean Corpuscular Volume 92.3 fL (81-99); Mean Platelet Vol. 12.3 fl (6.2-12.0); Platelet Count 180 K/mm3 (150-450); RBC Distribution Width CV 12.6 % (11.6-14.6); RBC Distribution Width SD 41.9 fl (35.1-43.9); Red Blood Count 3.62 M/mm3 (4.2-5.4); White Blood Count 25.2 K/mm3 (4.4-11.0)
[2022-07-17] MEDS: Ibuprofen 600 MG Tablet PO ×2 (05:43→13:02)
[2022-07-17] MEDS: Senna/Docusate Sodium 1 Tablet PO (07:47)
--- NOTE | 2022-07-17 08:42 | PCM.PN.OB ---
Subjective Subjective Patient seen at bedside. Feeling good. Denies any pain. Ambulating and voiding without difficulty. Lochia decreasing. Objective Data Objective Data Vital Signs: Vital Signs Temp Pulse Resp BP Pulse Ox O2 Del Method 98 F 80 16 126/82 H 99 Room Air 07/17/22 04:00 07/17/22 07:33 07/17/22 04:00 07/17/22 07:33 07/17/22 07:33 07/17/22 04:00 Oxygen Delivery Method Room Air Weight: 176 lb Body Mass Index (BMI) 30.2 Intake & Output: Intake and Output for Last 24 Hours 07/15/22 07/16/22 07/17/22 23:59 23:59 23:59 Intake Total 209.00 / 209.00 3989.33 / 3989.33 Output Total 1900 / 1900 600 / 600 Balance 209.00 / 209.00 2089.33 / 2089.33 -600 / -600 Lab / Micro Data Attestation: I reviewed the patient's lab results. Result Diagrams: 07/17/22 04:22 07/15/22 19:45 Labs: Laboratory Results - last 24 hr 07/17/22 04:22: WBC 25.2 H, RBC 3.62 L, Hgb 11.0 L, Hct 33.4 L, MCV 92.3, MCH 30.4, MCHC 32.9, RDW Std Deviation 41.9, RDW Coeff of Forrest 12.6, Plt Count 180, MPV 12.3 H ROS Eyes Eyes: Denies blurry vision, change in vision or spots in vision ENT HEENT: Denies dizziness or headache(s) Cardiovascular Cardiovascular: Denies abdominal pain, chest pain or dyspnea Respiratory/Chest Respiratory/Chest: Denies cough, dyspnea, shortness of breath at rest or shortness of breath with exertion Gastrointestinal Gastrointestinal: Denies abdominal pain, diarrhea or vomiting Genitourinary Genitourinary: Denies change in urinary stream, difficulty urinating or dysuria Musculoskeletal Musculoskeletal: Reports none Integumentary Integumentary: Denies rash Neurologic Neurologic: Denies dizziness, headache(s), memory loss or weakness Physical Exam Const alert and no apparent distress General Appearance: cooperative and comfortable Exam Limitations: no limitations HEENT normocephalic Eyes General Eye: normal appearance of both eyes Neck full ROM General: normal visual inspection Chest Chest: symmetrical chest wall rise Resp normal respiratory effort and normal air movement Effort and Inspection: symmetric chest movement Auscultation: clear to auscultation bilaterally Cardio regular rate and regular rhythm GI normal to inspection, nondistended, normoactive bowel sounds Back/Spine normal ROM Extremity full ROM and no calf tenderness General Extremity: normal exam except as noted Skin no rashes or lesions noted Neuro CN's II-XII intact bilaterally Psych mental status grossly normal Assessment & Plan (1) First degree perineal laceration: (2) Vaginal delivery: (3) Gestational hypertension: PLAN: Plan PPD 1 BP stable support Routine care Anticipate discharge home tomorrow
[2022-07-17] MEDS: Prenatal Vits Tablet 1 TABLET PO (13:02)
[2022-07-18] VITALS (7 sets, daily range): BP systolic 129–141; BP diastolic 71–91; PULSE 83–100; RESP 14–18; TEMP 36.6–37.1; O2SAT 96–98
[2022-07-18] MEDS: Ibuprofen 600 MG Tablet PO (04:13)
[2022-07-18 05:04] LABS: Absolute Neutrophil Count 13.9 X10^3/uL (2.0-7.7); Basophil# 0.07 X10^3/uL; Basophil% 0.4 % (0-1); Eosinophil# 0.25 X10^3/uL; Eosinophils% 1.3 % (0-5); Hemoglobin 11.1 g/dL (12.0-15.0); Lymphocyte % 18.7 % (19-41); Mean Corp Hgb Conc 32.6 g/dL (32-36); Mean Corpuscular Hgb 30.2 pg (27.0-32.0); Mean Corpuscular Volume 92.6 fL (81-99); Mean Platelet Vol. 11.8 fl (6.2-12.0); Monocyte# 1.19 X10^3/uL; Monocyte% 6.2 % (0-10); NRBC Flagged by Analyzer 0 % (0-5); Neutrophil # 13.92 X10^3/uL (2.7-7.7); Neutrophil % 72.4 % (47-70); Platelet Count 216 K/mm3 (150-450); RBC Distribution Width CV 12.9 % (11.6-14.6); RBC Distribution Width SD 43.3 fl (35.1-43.9); Red Blood Count 3.67 M/mm3 (4.2-5.4); White Blood Count 19.2 K/mm3 (4.4-11.0)
--- NOTE | 2022-07-18 08:28 | PCM.PN.OB ---
Subjective Subjective Doing well per patient and nursing staff. Ambulating and taking PO without difficulty. Voiding and passing flatus. Pain controlled. , services for assistance. Denies headache, visual changes, chest pain, shortness of breath, leg pain or increased bleeding. Lochia normal. Objective Data Objective Data Vital Signs: Vital Signs Temp Pulse Resp BP Pulse Ox O2 Del Method 98.6 F 88 14 140/91 H 96 Room Air 07/18/22 02:20 07/18/22 07:37 07/18/22 02:20 07/18/22 07:37 07/18/22 07:37 07/18/22 02:20 Oxygen Delivery Method Room Air Weight: 176 lb Body Mass Index (BMI) 30.2 Intake & Output: Intake and Output for Last 24 Hours 07/16/22 07/17/22 07/18/22 23:59 23:59 23:59 Intake Total 3989.33 / 3989.33 Output Total 1900 / 1900 600 / 600 Balance 2089.33 / 2089.33 -600 / -600 Lab / Micro Data Result Diagrams: 07/18/22 04:45 07/15/22 19:45 Labs: Laboratory Results - last 24 hr 07/18/22 04:45: WBC 19.2 H, RBC 3.67 L, Hgb 11.1 L, Hct 34.0 L, MCV 92.6, MCH 30.2, MCHC 32.6, RDW Std Deviation 43.3, RDW Coeff of Forrest 12.9, Plt Count 216, MPV 11.8, Immature Gran % (Auto) 1.000 H, Neut % (Auto) 72.4 H, Lymph % (Auto) 18.7 L, [place] % (Auto) 6.2, Eos % (Auto) 1.3, Baso % (Auto) 0.4, Absolute Neuts (auto) 13.9 H, Absolute Lymphs (auto) 3.60, Nucleated RBC % 0 ROS Constitutional Constitutional: Reports systems reviewed and no addt'l complaints, except as documented; Denies headache(s) Eyes Eyes: Denies acute decrease in peripheral vision, blurry vision or change in vision ENT HEENT: Reports systems reviewed and no addt'l complaints, except as documented Cardiovascular Cardiovascular: Denies chest pain or dizziness Respiratory/Chest Respiratory/Chest: Denies cough, dyspnea, dyspnea on exertion, shortness of breath at rest or shortness of breath with exertion Gastrointestinal Gastrointestinal: Denies abdominal pain, diarrhea, nausea or vomiting Genitourinary Genitourinary: Denies abdominal discomfort Musculoskeletal Musculoskeletal: Denies limited range of motion Integumentary Integumentary: Reports systems reviewed and no addt'l complaints, except as documented Neurologic Neurologic: Reports systems reviewed and no addt'l complaints, except as documented Psychiatric Psychiatric: Reports systems reviewed and no addt'l complaints, except as documented Endocrine Endocrinology: Reports systems reviewed and no addt'l complaints, except as documented Hematologic/Lymphatic Hematologic/Lymphatic: Reports systems reviewed and no addt'l complaints, except as documented Allergic/Immunologic Allergic/Immunologic: Reports systems reviewed and no addt'l complaints, except as documented Physical Exam Const alert and oriented x3 General Appearance: cooperative Orientation / Consciousness: awake, oriented to person, oriented to place and oriented to time Exam Limitations: no limitations HEENT normocephalic Head and Scalp: normal to inspection, normocephalic and atraumatic Face and Sinus: normal facial exam Eyes General Eye: normal appearance of both eyes Neck full ROM Chest Chest: symmetrical chest wall rise Resp normal respiratory effort and normal air movement Auscultation: clear to auscultation bilaterally Cardio regular rate, regular rhythm, S1 normal heart sound, S2 normal heart sound, no murmurs, no rub, no gallops and no clicks GI normal to inspection, nondistended, normoactive bowel sounds and non-tender appearance of the vagina normal Bladder / Kidney Exam: no CVA tenderness Back/Spine normal ROM Extremity normal to inspection and full ROM Skin no rashes or lesions noted Neuro oriented x3, CN's II-XII intact bilaterally and moves all extremities Sensorium / Orientation: awake, alert and oriented to person Motor Exam: clonus absent Deep Tendon Reflexes: Rt Patellar (L4): 2+ and Lt Patellar (L4): 2+ Assessment & Plan (1) First degree perineal laceration: (2) Vaginal delivery: PLAN: Plan 1) Routine PP care 2) Vitals stable 3) BP Labetalol 200mg PO BID for elevated BP. Will take BP daily and call if 160/110 or increasing. Return to office on 07/23 for BP check. 4) D/C home 5) Follow up in 2 weeks for virtual visit and 6 weeks for PP visit
--- NOTE | 2022-07-18 08:36 | DS.PCM_ITS ---
Providers Date of Admission: 07/15/22 Primary Care Physician: Alma Primary Care Phys Reason For Visit: VAGINAL DELIVERY Diagnosis Discharge Diagnosis (1) First degree perineal laceration: Status: Acute Code(s): O70.0 - First degree perineal laceration during delivery (2) Vaginal delivery: Status: Acute Code(s): O80 - Encounter for full-term uncomplicated delivery Plan 1) Routine PP care 2) Vitals stable 3) BP Labetalol 200mg PO BID for elevated BP. Will take BP daily and call if 160/110 or increasing. Return to office on 07/23 for BP check. 4) D/C home 5) Follow up in 2 weeks for virtual visit and 6 weeks for PP visit Medications at Discharge Home Medications vit 168-iron 27 mg-folic acid 800 mcg-omega3 235 mg capsule (One-A-Day -1) 1 cap PO DAILY 04/10/21 acetaminophen 500 mg tablet 1,000 mg PO Q6H PRN PRN Pain 1-10 Or Fever #0 tabs 07/18/22 ibuprofen 600 mg tablet 600 mg PO Q6H PRN PRN Pain Score 1-3 #0 tabs 07/18/22 labetalol 200 mg tablet 200 mg PO BID #60 tabs 07/18/22 Weight / BMI Weight Weight: 176 lb Body Mass Index (BMI) 30.2 ABG / Lab / Microbiology Data Result Diagrams: 07/18/22 04:45 07/15/22 19:45 Laboratory: Laboratory Results - last 24 hr 07/18/22 04:45: WBC 19.2 H, RBC 3.67 L, Hgb 11.1 L, Hct 34.0 L, MCV 92.6, MCH 30.2, MCHC 32.6, RDW Std Deviation 43.3, RDW Coeff of Forrest 12.9, Plt Count 216, MPV 11.8, Immature Gran % (Auto) 1.000 H, Neut % (Auto) 72.4 H, Lymph % (Auto) 18.7 L, [place] % (Auto) 6.2, Eos % (Auto) 1.3, Baso % (Auto) 0.4, Absolute Neuts (auto) 13.9 H, Absolute Lymphs (auto) 3.60, Nucleated RBC % 0 Meaningful Use Info Meaningful Use Diagnoses (Choose all that apply): None applicable Discharge Plan Admission Admit Date/Time: 07/15/22 19:00 Primary Reason for Your Visit: Vaginal Delivery, Gestational Hypertension Attending Provider: Lacey Grady Primary Care Provider: Alma Ramirez Primary Discharge Orders/Prescriptions Prescriptions: New acetaminophen 500 mg Tablet 1,000 mg PO Q6H PRN PRN (Reason: Pain 1-10 Or Fever) Qty: 0 0RF ibuprofen 600 mg Tablet 600 mg PO Q6H PRN PRN (Reason: Pain Score 1-3) Qty: 0 0RF labetalol 200 mg tablet 200 mg PO BID Qty: 60 0RF Continued One-A-Day -1 27 mg iron- 800 mcg-235 mg capsule 1 cap PO DAILY Discontinued Lactobacillus reuteri 100 million cell tablet,chewable 1 cell PO DAILY Zyrtec 10 mg PO.IVFORM DAILY Referrals / Follow Up: Care Physician,No Primary [Primary Care Provider] - Disposition Disposition (needs filled in before D/C Order can be placed): Home, Self Care
[2022-07-18] MEDS: Senna/Docusate Sodium 1 Tablet PO (10:19)
== END 2022-07-18 11:48 | disposition home or self-care (01) | DRG 807 ==
PROVIDERS: Advanced Practice Midwife; Admitting Provider Advanced Practice Midwife; Referring Provider Obstetrics & Gynecology; Visit Provider Advanced Practice Midwife
DX: O13.4 Gestational [pregnancy-induced] hypertension without significant proteinuria, complicating childbirth (principal); Z37.0 Single live birth; O70.0 First degree perineal laceration during delivery; O99.824 Streptococcus B carrier state complicating childbirth; Z3A.37 37 weeks gestation of pregnancy; Z79.899 Other long term (current) drug therapy
CPT/HCPCS: 59025; 59050; 80053; 82570; 84156; 85025; 85027; 86780; 86850; 86900; 86901; 99221; J7120; A4216; G0378; J2405

== ENCOUNTER 2023-01-24 15:23 | Outpatient (CLI) | payer OTHER, SELFPAY | END 2023-01-24 16:02 | disposition home or self-care (01) | LOC: WPOUT 15:24 → WP 15:24 | PROVIDERS: Referring Provider Nurse Practitioner Family; Visit Provider Nurse Practitioner Family | DX: Z39.1 Encounter for care and examination of lactating mother (principal) | CPT/HCPCS: 96158 ==

== ENCOUNTER 2024-05-07 09:25 | Outpatient (CLI) | payer OTHER, SELFPAY ==
[2024-05-07 09:43] VITALS: BP 138/84; PULSE 86
[2024-05-07 11:56] VITALS: BP 143/80; PULSE 77
[2024-05-07 12:13] VITALS: BP 122/75; PULSE 77
[2024-05-07 12:28] VITALS: BP 116/70; PULSE 101
[2024-05-07] MEDS: LACTATED RINGERS 500 ML 999 ML IV (12:55)
[2024-05-07 13:15] VITALS: BMI 29.8
[2024-05-07 13:28] LABS: Absolute Lymphocyte Count 2.81 X10^3/uL (0.83-4.51); Absolute Neutrophil Count 9.9 X10^3/uL (2.0-7.7); Basophil# 0.04 X10^3/uL; Basophil% 0.3 % (0-1); Eosinophil# 0.06 X10^3/uL; Eosinophils% 0.4 % (0-5); Hematocrit 37.4 % (37-47); Hemoglobin 12.3 g/dL (12.0-15.0); Lymphocyte # 2.81 X10^3/ul (0.83-4.51); Lymphocyte % 20.8 % (19-41); Mean Corp Hgb Conc 32.9 g/dL (32-36); Mean Corpuscular Hgb 29.5 pg (27.0-32.0); Mean Corpuscular Volume 89.7 fL (81-99); Mean Platelet Vol. 12.5 fl (6.2-12.0); Monocyte# 0.65 X10^3/uL; Monocyte% 4.8 % (0-10); NRBC Flagged by Analyzer 0 % (0-5); Neutrophil # 9.89 X10^3/uL (2.7-7.7); Platelet Count 231 K/mm3 (150-450); RBC Distribution Width CV 13.3 % (11.6-14.6); RBC Distribution Width SD 43.6 fl (35.1-43.9); Red Blood Count 4.17 M/mm3 (4.2-5.4); White Blood Count 13.5 K/mm3 (4.4-11.0)
[2024-05-07] MEDS: Lactated Ringers 500 ML IV.SOLN. 200 ML IV (13:30)
[2024-05-07 13:40] LABS: Fibrinogen 399 mg/dl (203-444); Partial Thromboplast Time 23.5 Seconds (24.1-36.2)
[2024-05-07 13:44] LABS: International Normalized Ratio 0.9; Prothrombin Time (Protime)PT. 12.1 SECONDS (11.7-14.9)
--- NOTE | 2024-05-07 17:42 | OB.TRI.HP_ITS ---
HPI - General HPI Narrative JESE MAC, is a 33 F at 37.3 weeks gestation who presents to triage s/p fall. Patient fell on left side at home. Denies any abdominal pain, cramps or loss of fluid. Positive movements. [facility] Medical History (Updated 05/07/24 @ 17:47 by Erin Anderson CNM) Raynaud disease Asthma IBS (irritable bowel syndrome) Dilation of stomach Wears contact lenses Wears glasses Anal itching Bright red blood per rectum Constipated Umbilical pain Allergies Home Medications ?Medication ?Instructions ?Recorded ?Last Taken ?Type vit 168-iron 27 mg-folic 1 cap PO DAILY pregn feliciano 04/10/21 07/15/22 History acid 800 mcg-omega3 235 mg capsule (One-A-Day -1) Allergy/AdvReac Type Severity Reaction Status Date / Time banana Allergy Intermediate unknown Verified 05/07/24 13:16 house dust mite Allergy Intermediate unknown Verified 05/07/24 13:16 beatriz Allergy Intermediate unknown Verified 05/07/24 13:16 pineapple Allergy Intermediate unknown Verified 05/07/24 13:16 amoxicillin Allergy Mild Rash Verified 05/07/24 13:16 Family History Grandmother Diabetes Father Hypertension Surgical History H/O wisdom tooth extraction Social History Smoking Status: Never smoker alcohol intake: current alcohol intake frequency: a few times a week History Elective abortions Hx Para 0 Spontaneous abortions Hx # Term Pregnancies Ectopic pregnancies Hx # Pregnancies Multiple births # of living children ROS Eyes Eyes: Denies blurry vision Cardiovascular Cardiovascular: Reports none; Denies chest pain at rest, chest pain with activity or dizziness Respiratory/Chest Respiratory/Chest: Denies cough or dyspnea Gastrointestinal Gastrointestinal: Reports none and other; Denies diarrhea or vomiting Genitourinary Genitourinary: Denies dysuria Musculoskeletal Musculoskeletal: Reports none Integumentary Integumentary: Reports none; Denies rash Neurologic Neurologic: Denies dizziness, headache(s) or other visual disturbances Psychiatric Psychiatric: Reports none Physical Exam Const alert and no apparent distress General Appearance: cooperative Orientation / Consciousness: awake Exam Limitations: no limitations HEENT normocephalic Eyes General Eye: normal appearance of both eyes Neck full ROM Chest inspection of chest normal Resp normal respiratory effort and normal air movement Effort and Inspection: symmetric chest movement Auscultation: clear to auscultation bilaterally Cardio regular rate GI soft to palpation, non-tender and non-distended Inspection: and other Back/Spine normal ROM Extremity full ROM, normal capillary refill and no calf tenderness Skin no rashes or lesions noted Neuro oriented x3 and CN's II-XII intact bilaterally Psych mental status grossly normal NST FHR Rate Baby A Baseline: 130 Variability:: Moderate Accelerations:: 15 x 15 Decelerations:: None NST Reactive:: Yes FHR Category:: Category I Uterine Activity:: Irregular- palpate mild Assessment & Plan (1) Fall: (2) 37 weeks gestation of : PLAN: Plan Extended monitoring Start IV and give fluid bolus Labs- coag panel- normal NST reactive D/C home with follow up this week in office
== END 2024-05-07 14:15 | disposition home or self-care (01) ==
LOC: WPOUT 09:29 → WP 09:30
PROVIDERS: Referring Provider Advanced Practice Midwife; Visit Provider Advanced Practice Midwife
DX: Z04.3 Encounter for examination and observation following other accident (principal); Z3A.37 37 weeks gestation of pregnancy
CPT/HCPCS: 96360; 36415; 59025; 59050; 85025; 85384; 85610; 85730; 86850; 86900; 86901; 99221; G0378

== ENCOUNTER 2024-05-21 23:50 | Inpatient (IN) | payer OTHER, SELFPAY ==
[2024-05-21] VITALS (16 sets, daily range): BP systolic 134; BP diastolic 86; PULSE 73–97; O2SAT 89–100; BMI 29.8
--- NOTE | 2024-05-21 23:54 | HP.PCM.OB_ITS ---
HPI - General General Date of Admission: 05/21/24 HPI Narrative JESE MAC, is a 33 F who presents at 39w3d in active labor. Presented with contractions that have been present throughout the day and became stronger into the evening. No leakage of fluid or vaginal bleeding. Maternal Data Information BALDO Calculator Estimated Delivery Date Method Current WG Current Estimate 05/25/24 Manual 39w 4d PFSH PFS Medical History (Updated 05/22/24 @ 00:06 by Lacey Grady CNM) Raynaud disease Asthma IBS (irritable bowel syndrome) Dilation of stomach Wears contact lenses Wears glasses Anal itching Bright red blood per rectum Constipated Umbilical pain Allergies Home Medications ?Medication ?Instructions ?Recorded ?Last Taken ?Type vit 168-iron 27 mg-folic 1 cap PO DAILY pregn feliciano 04/10/21 07/15/22 His tory acid 800 mcg-omega3 235 mg capsule (One-A-Day -1) aspirin 81 mg capsule 81 mg PO DAILY 05/21/24 Unkn own History cetirizine 10 mg capsule (All Day 10 mg PO DAILY PRN a llergies 05/21/24 Unknown History Allergy (cetirizine)) Allergy/AdvReac Type Severity Reaction Status Date / Time banana Allergy Intermediate unknown Verified 05/21/24 22:50 house dust mite Allergy Intermediate unknown Verified 05/21/24 22:50 beatriz Allergy Intermediate unknown Verified 05/21/24 22:50 pineapple Allergy Intermediate unknown Verified 05/21/24 22:50 amoxicillin Allergy Mild Rash Verified 05/21/24 22:50 Family History Grandmother Diabetes Father Hypertension Surgical History H/O wisdom tooth extraction Social History Smoking Status: Never smoker alcohol intake: current alcohol intake frequency: a few times a week History Elective abortions Hx Para 0 Spontaneous abortions Hx # Term Pregnancies Ectopic pregnancies Hx # Pregnancies Multiple births # of living children NST FHR Rate Baby A Baseline: 135 Variability:: Moderate Accelerations:: 15 x 15 Decelerations:: Variable FHR Category:: Category II Uterine Activity:: Every 3 minutes, moderate, lasting 60 seconds ROS Constitutional Constitutional: Reports systems reviewed and no addt'l complaints, except as documented; Denies headache(s) Eyes Eyes: Denies acute decrease in peripheral vision, blurry vision or change in vision ENT HEENT: Reports systems reviewed and no addt'l complaints, except as documented Cardiovascular Cardiovascular: Denies chest pain or dizziness Respiratory/Chest Respiratory/Chest: Denies cough, dyspnea, dyspnea on exertion, shortness of breath at rest or shortness of breath with exertion Gastrointestinal Gastrointestinal: Denies abdominal pain, diarrhea, nausea or vomiting Genitourinary Genitourinary: Denies abdominal discomfort Musculoskeletal Musculoskeletal: Denies limited range of motion Integumentary Integumentary: Reports systems reviewed and no addt'l complaints, except as documented Neurologic Neurologic: Reports systems reviewed and no addt'l complaints, except as documented Psychiatric Psychiatric: Reports systems reviewed and no addt'l complaints, except as documented Endocrine Endocrinology: Reports systems reviewed and no addt'l complaints, except as documented Hematologic/Lymphatic Hematologic/Lymphatic: Reports systems reviewed and no addt'l complaints, except as documented Allergic/Immunologic Allergic/Immunologic: Reports systems reviewed and no addt'l complaints, except as documented Vital Signs Vital Signs Vital Signs: 05/21/24 22:50 05/21/24 22:50 05/21/24 22:50 Pulse Rate 81 Blood Pressure 134/86 H BP Systolic 134 BP Diastolic 86 Pulse Ox 97 05/21/24 22:55 05/21/24 22:55 05/21/24 23:00 Pulse Rate 80 78 Blood Pressure BP Systolic BP Diastolic Pulse Ox 97 05/21/24 23:00 05/21/24 23:05 05/21/24 23:05 Pulse Rate 92 Blood Pressure BP Systolic BP Diastolic Pulse Ox 97 97 05/21/24 23:06 05/21/24 23:06 05/21/24 23:10 Pulse Rate 89 85 Blood Pressure BP Systolic BP Diastolic Pulse Ox 90 05/21/24 23:10 05/21/24 23:13 05/21/24 23:13 Pulse Rate 82 Blood Pressure BP Systolic BP Diastolic Pulse Ox 97 93 05/21/24 23:15 05/21/24 23:15 05/21/24 23:20 Pulse Rate 80 91 Blood Pressure BP Systolic BP Diastolic Pulse Ox 97 05/21/24 23:20 05/21/24 23:25 05/21/24 23:25 Pulse Rate 85 Blood Pressure BP Systolic BP Diastolic Pulse Ox 98 97 05/21/24 23:30 05/21/24 23:30 05/21/24 23:33 Pulse Rate 73 97 Blood Pressure BP Systolic BP Diastolic Pulse Ox 100 05/21/24 23:33 05/21/24 23:35 05/21/24 23:35 Pulse Rate 80 Blood Pressure BP Systolic BP Diastolic Pulse Ox 89 98 05/21/24 23:40 05/21/24 23:40 05/21/24 23:43 Pulse Rate 89 82 Blood Pressure BP Systolic BP Diastolic Pulse Ox 100 05/21/24 23:43 05/21/24 23:45 05/21/24 23:45 Pulse Rate 82 Blood Pressure BP Systolic BP Diastolic Pulse Ox 89 100 Weight Weight: 174 lb Body Mass Index (BMI) 29.8 Physical Exam Const alert and oriented x3 General Appearance: cooperative Orientation / Consciousness: awake, oriented to person, oriented to place and oriented to time Exam Limitations: no limitations HEENT normocephalic Head and Scalp: normal to inspection, normocephalic and atraumatic Face and Sinus: normal facial exam Eyes General Eye: normal appearance of both eyes Neck full ROM Chest Chest: symmetrical chest wall rise Resp normal respiratory effort and normal air movement Auscultation: clear to auscultation bilaterally Cardio regular rate, regular rhythm, S1 normal heart sound, S2 normal heart sound, no murmurs, no rub, no gallops and no clicks GI normal to inspection, nondistended, normoactive bowel sounds and non-tender appearance of the vagina normal Bladder / Kidney Exam: no CVA tenderness Manual OB Exam: estimated gestational size appropriate, presentation cephalic, dilated 5, effaced 60, station -1 and other IBOW Back/Spine normal ROM Extremity normal to inspection and full ROM Skin no rashes or lesions noted Neuro oriented x3, CN's II-XII intact bilaterally and moves all extremities Sensorium / Orientation: awake, alert and oriented to person Motor Exam: clonus absent Deep Tendon Reflexes: Rt Patellar (L4): 2+ and Lt Patellar (L4): 2+ Labs Labs Labs: Blood Type A POSITIVE Antibody Screen NEGATIVE Hct 37.4 % (37-47) Hgb 12.3 g/dL (12.0-15.0) Syphilis Total Ab Non-reactive Miscellaneous Test GBS positive RPR negative HepC negative HBsAG negative HIV negative A Positive GC/CT negative 1hr GCT negative Assessment & Plan (1) 39 weeks gestation of : (2) Active labor at term: (3) Positive GBS test: (4) History of gestational hypertension: PLAN: Plan 1) Admit to labor and delivery 2) Routine labs 3) Continuous EFM 4) Pain management upon request 5) Dr. Price collaborative physician and notified of patient status, above assessment, and plan. 6) GBS positive, PCN allergy, susceptible to Vancomycin for prophylaxis
[2024-05-22] VITALS (56 sets, daily range): BP systolic 113–156; BP diastolic 55–96; PULSE 66–121; RESP 14–16; TEMP 36.1–36.8; O2SAT 88–100
[2024-05-22] MEDS: Lactated Ringers 1,000 ML 999 ML IV
[2024-05-22 00:21] LABS: Absolute Lymphocyte Count 3.92 X10^3/uL (0.83-4.51); Absolute Neutrophil Count 9.4 X10^3/uL (2.0-7.7); Basophil# 0.03 X10^3/uL; Basophil% 0.2 % (0-1); Eosinophil# 0.14 X10^3/uL; Hematocrit 40.9 % (37-47); Hemoglobin 13.6 g/dL (12.0-15.0); Lymphocyte # 3.92 X10^3/ul (0.83-4.51); Lymphocyte % 27.2 % (19-41); Mean Corp Hgb Conc 33.3 g/dL (32-36); Mean Corpuscular Hgb 29.4 pg (27.0-32.0); Mean Corpuscular Volume 88.3 fL (81-99); Mean Platelet Vol. 11.9 fl (6.2-12.0); Monocyte# 0.82 X10^3/uL; Monocyte% 5.7 % (0-10); NRBC Flagged by Analyzer 0 % (0-5); Neutrophil # 9.42 X10^3/uL (2.7-7.7); Neutrophil % 65.3 % (47-70); Platelet Count 238 K/mm3 (150-450); RBC Distribution Width CV 13.6 % (11.6-14.6); RBC Distribution Width SD 43.4 fl (35.1-43.9); Red Blood Count 4.63 M/mm3 (4.2-5.4); White Blood Count 14.4 K/mm3 (4.4-11.0)
--- NOTE | 2024-05-22 00:32 | PCM.RX.CS ---
Consult Antibiotic Management Pharmacy has been consulted to manage selected antibiotic: Vancomycin Type of Intervention Type of Consult: New start Suspected Infection Suspected Infection: Other (WP GBS) Goal Trough Goal Trough: 10-15 mcg/mL Pharmacy Plan for Drug Dosing Pharmacy Plan for Drug Dosing: NEW START IV VANCOMYCIN Consulting Physician: Lacey Grady Indication: WP GBS Goal Trough: 10-15 SrCr: N/A CrCl: N/A Vancomycin Dose: 1500mg Q8H to start @ 01:00 05/22/24 Pending Level: 05/23/24 @ 00:30 if not delivered Pharmacy Service will continue to monitor and adjust dosing as required. Follow-Up Labs Follow-Up Labs: Trough: Vancomycin (05/23/24 @ 00:30 if not delivered)
[2024-05-22] MEDS: Ondansetron 4 MG/2 ML Vial IV (00:49)
[2024-05-22 01:01] LABS: Syphilis Antibodies Nonreactive (Nonreactive)
[2024-05-22] MEDS: Lactated Ringers 1,000 ML 200 ML IV (01:03)
[2024-05-22] MEDS: Vancomycin HCl 1,500 MG in 0.9% Normal Saline (500mL Bag) 500 ML 250 MG IV (01:05)
[2024-05-22] MEDS: fentaNYL-bupivacaine (epidural) 100 ML BAG EPIDURAL (01:39)
[2024-05-22] MEDS: Oxytocin 10 UNITS/ML Vial IM (04:16)
[2024-05-22] MEDS: Oxytocin 15 Units/NS 250ml 15 UNITS/250 ML IV.SOLN 83 UNITS IV (04:17)
--- NOTE | 2024-05-22 04:37 | EX.PCM.OBVAG ---
Assessment & Plan (1) Lactating mother: (2) Vaginal delivery: Maternal Data Information BALDO Calculator Estimated Delivery Date Method Current WG Current Estimate 05/25/24 Manual 39w 4d Vaginal Delivery Maternal Presentation Maternal Presentation: Active Labor Vaginal Delivery Information Procedure Performed: Spontaneous Vaginal Delivery Surgeon/Practitioner: Lcaey Grady Date of Procedure: 05/22/24 Pre-Procedure Diagnosis: Active labor at term Post-Procedure Diagnosis: Type of anesthesia: Epidural Estimated Blood Loss: 200ml Time of Delivery: 04:09 Findings Description of procedure: Progressed to complete with urge to push. Epidural for pain management. of viable female infant over intact perineum. APGARS 8,9 respectively. Infant head delivered with body immediately forthcoming. Placed on maternal abdomen, strong cry. Mouth and nares suctioned for secretions. Cord doubly clamped and cut by FOB immediately after delivery for cord blood banking. Placenta delivered intact via marroquin, 3 vessel cord intact. Pitocin started for active 3rd stage management.Perineum inspected and revealed intact. Fundus firm and hemostasis achieved. EBL 200ml. Mom and baby stable, planning to breastfeed. Family bonding well. notified of delivery. Presentation: Vertex and XUAN Amniotic Membrane Rupture Type: Artificial Amniotic Fluid Description: Clear Placental Delivery Description: Spontaneous Placenta Disposition: Other (Collected for banking, with patient) Specimen collected: No Cord Vessel Description: 3 Vessels Cord Entanglement: None A Gender: Female (1 minute): 8 (5 minute): 9 Delayed Cord Clamping: No Customer Success Representative account representative: No Post Vaginal Deli Medications given after delivery: IV Pitocin and IM Pitocin Episiotomy Description: None Laceration: None Complication Complications: No
[2024-05-22] MEDS: Senna/Docusate Sodium 1 Tablet PO (16:39)
--- NOTE | 2024-05-22 20:22 | NURSING ---
Phone call placed to Jodi Grady about pts pressures. Plan is to give 10 mg PO procardia and 30 mg procardia XL now and then daily. Obtain CBC and CMP now.
[2024-05-22] MEDS: NIFEdipine 10 MG Capsule PO (20:29)
[2024-05-22] MEDS: NIFEdipine 30 MG Tablet PO (20:29)
[2024-05-22 20:55] LABS: Absolute Neutrophil Count 11.8 X10^3/uL (2.0-7.7); Basophil# 0.05 X10^3/uL; Basophil% 0.3 % (0-1); Eosinophil# 0.08 X10^3/uL; Eosinophils% 0.5 % (0-5); Hematocrit 37.2 % (37-47); Hemoglobin 12.7 g/dL (12.0-15.0); Lymphocyte % 22.7 % (19-41); Mean Corp Hgb Conc 34.1 g/dL (32-36); Mean Corpuscular Hgb 29.8 pg (27.0-32.0); Mean Corpuscular Volume 87.3 fL (81-99); Monocyte# 1.19 X10^3/uL; Monocyte% 6.9 % (0-10); NRBC Flagged by Analyzer 0 % (0-5); Neutrophil # 11.84 X10^3/uL (2.7-7.7); Neutrophil % 69.1 % (47-70); Platelet Count 244 K/mm3 (150-450); RBC Distribution Width CV 13.7 % (11.6-14.6); RBC Distribution Width SD 42.8 fl (35.1-43.9); Red Blood Count 4.26 M/mm3 (4.2-5.4); White Blood Count 17.2 K/mm3 (4.4-11.0)
[2024-05-22 21:11] LABS: ALB/GLOB Ratio 1.2 RATIO (0.9-2.4); AST(SGOT) 26 U/L (<=31); Alanine Aminotransfer ALT/SGPT 15 U/L (<=34); Albumin, Serum 3.3 g/dL (3.5-5.0); Alkaline Phosphatase 153 U/L (35-104); Anion Gap 11 (5-15); BUN 10 mg/dL (4-19); BUN/Creat Ratio 17.1 RATIO (10-20); Calcium,Total 9.2 mg/dL (7.6-11.0); Carbon Dioxide 21.3 mmol/L (21.0-32.0); Chloride 106 mmol/L (98-108); EST Glomerular Filtration Rate 121 (>60); Estimated Creatinine Clearance 134.29 ml/min (50-250); Globulin 2.8 g/dL (2.2-4.2); Glucose 99 mg/dL (70-99); Potassium 4.3 mmol/L (3.3-5.1); Protein, Total 6.1 g/dL (5.9-8.4); Sodium Level 138 mmol/L (133-145); Total Bilirubin 0.26 mg/dL (0.00-1.30)
[2024-05-23 05:00] VITALS: BP 133/88; PULSE 72; RESP 16; TEMP 36.2; O2SAT 98
[2024-05-23 08:11] VITALS: BP 111/79; PULSE 95; RESP 16; TEMP 36.3; O2SAT 99
[2024-05-23] MEDS: NIFEdipine 30 MG Tablet PO (10:09)
[2024-05-23] MEDS: Senna/Docusate Sodium 1 Tablet PO (10:10)
--- NOTE | 2024-05-23 10:17 | PCM.PN.OB ---
Subjective Subjective Denies complaints Objective Data Objective Data Vital Signs: Vital Signs Temp Pulse Resp BP Pulse Ox O2 Del Method 97.4 F L 95 16 111/79 99 Room Air 05/23/24 08:11 05/23/24 08:11 05/23/24 08:11 05/23/24 08:11 05/23/24 08:11 05/23/24 08:11 Oxygen Delivery Method Room Air Weight: 174 lb Body Mass Index (BMI) 29.8 Intake & Output: Intake and Output for Last 24 Hours 05/21/24 05/22/24 05/23/24 23:59 23:59 23:59 Intake Total 2403.33 / 2403.33 Output Total 3700 / 3700 Balance -1296.67 / -1296.67 Lab / Micro Data 05/22/24 20:35 05/22/24 20:35 Labs: Laboratory Results - last 24 hr 05/22/24 20:35: WBC 17.2 H, RBC 4.26, Hgb 12.7, Hct 37.2, MCV 87.3, MCH 29.8, MCHC 34.1, RDW Std Deviation 42.8, RDW Coeff of [place] 13.7, Plt Count 244, MPV 12.0, Immature Gran % (Auto) 0.500, Neut % (Auto) 69.1, Lymph % (Auto) 22.7, [place] % (Auto) 6.9, Eos % (Auto) 0.5, Baso % (Auto) 0.3, Absolute Neuts (auto) 11.8 H, Absolute Lymphs (auto) 3.90, Nucleated RBC % 0, Sodium 138, Potassium 4.3, Chloride 106, Carbon Dioxide 21.3, Anion Gap 11, BUN 10, Creatinine 0.60 L, Estim Creat Clear Calc 134.29, Est GFR (MDRD) Non-Af 121, BUN/Creatinine Ratio 17.1, Glucose 99, Calcium 9.2, Total Bilirubin 0.26, AST 26, ALT 15, Alkaline Phosphatase 153 H, Total Protein 6.1, Albumin 3.3 L, Globulin 2.8, Albumin/Globulin Ratio 1.2 Physical Exam Const alert, oriented x3 and no apparent distress HEENT normocephalic GI soft to palpation, non-tender and non-distended GI Narrative: fundus firm, mid & below umbilicus Extremity normal to inspection and no calf tenderness Assessment & Plan (1) Gestational hypertension: QUALIFIERS: Trimester: third trimester Qualified Code(s): O13.3 - Gestational [-induced] hypertension without significant proteinuria, third trimester COMMENT: PPD#1 (2) Vaginal delivery: PLAN: Plan Continue procardia XL 30mg for gestational hypertension. PreE labs normal. Likely d/c home after 5pm today per patient request if BP's remain normal. Follow up this week in the office.
--- NOTE | 2024-05-23 10:20 | DS.PCM_ITS ---
Providers Date of Admission: 05/21/24 Date of Discharge: 05/23/24 Primary Care Physician: No Primary Care Phys Reason For Visit: VAG Diagnosis Discharge Diagnosis (1) Gestational hypertension: Status: Acute Code(s): O13.9 - Gestational [-induced] hypertension without significant proteinuria, unspecified trimester Qualifiers: Trimester: third trimester Qualified Code(s): O13.3 - Gestational [-induced] hypertension without significant proteinuria, third trimester (2) Vaginal delivery: Status: Acute Code(s): O80 - Encounter for full-term uncomplicated delivery Plan Continue procardia XL 30mg for gestational hypertension. PreE labs normal. Likely d/c home after 5pm today per patient request if BP's remain normal. Follow up this week in the office. Medications at Discharge Home Medications vit 168-iron 27 mg-folic acid 800 mcg-omega3 235 mg capsule (One-A-Day -1) 1 cap PO DAILY 04/10/21 acetaminophen 500 mg tablet 1,000 mg (2 x 500 mg) PO Q6H PRN PRN Pain 1-10 Or Fever #0 tabs 05/23/24 ibuprofen 600 mg tablet 600 mg PO Q6H PRN PRN Pain Score 1-10 #0 tabs 05/23/24 nifedipine 30 mg tablet,extended release 24 hr 30 mg PO DAILY #30 tabs 05/23/24 Hospital Course Operations None Procedures None Summary of Care Provided Minutes Spent on Discharge: 20 Weight / BMI Weight Weight: 174 lb Body Mass Index (BMI) 29.8 ABG / Lab / Microbiology Data 05/22/24 20:35 05/22/24 20:35 Laboratory: Laboratory Results - last 24 hr 05/22/24 20:35: WBC 17.2 H, RBC 4.26, Hgb 12.7, Hct 37.2, MCV 87.3, MCH 29.8, MCHC 34.1, RDW Std Deviation 42.8, RDW Coeff of [place] 13.7, Plt Count 244, MPV 12.0, Immature Gran % (Auto) 0.500, Neut % (Auto) 69.1, Lymph % (Auto) 22.7, [place] % (Auto) 6.9, Eos % (Auto) 0.5, Baso % (Auto) 0.3, Absolute Neuts (auto) 11.8 H, Absolute Lymphs (auto) 3.90, Nucleated RBC % 0, Sodium 138, Potassium 4.3, Chloride 106, Carbon Dioxide 21.3, Anion Gap 11, BUN 10, Creatinine 0.60 L, Estim Creat Clear Calc 134.29, Est GFR (MDRD) Non-Af 121, BUN/Creatinine Ratio 17.1, Glucose 99, Calcium 9.2, Total Bilirubin 0.26, AST 26, ALT 15, Alkaline Phosphatase 153 H, Total Protein 6.1, Albumin 3.3 L, Globulin 2.8, Albumin/Globulin Ratio 1.2 D/C Instructions Discharge Diet: No restrictions Discharge Activity: May Shower May resume sexual activity in: 6 weeks Weight Bearing Status: Weight bearing as tolerated Call your doctor if your incision/area has: Continuous Slow Oozing, Sudden Increased Bleeding, Increased Pain/ Swelling, Increased Redness, Foul Smelling Discharge and Swelling at the incision site Call your doctor if you observe: Fever of 101 or Higher, Coldness, Increased Pain, Change in Color, Inability to urinate, Inability to have a bowel movement, Using more than 1 pad per hour, Shortness of breath, Dizziness, Fainting spells, Chest pain, Increased palpitations (irregular heartbeat), Calf discomfort and Uncontrolled pain Suture Line Care: Avoid Pulling/Pushing and Avoid Pinching/Bending Remove Dressing in: 1 week Cleanse incision/area with: Soap & Water DC O2, CPAP, BIPAP Needs Home O2 Discharge instructions: No Please Follow Up With: Jenaro Price MD When: Follow up in 2 and 6 weeks for visits. Meaningful Use Info Meaningful Use Meaningful Use Diagnoses (Choose all that apply): None applicable Ischemic Stroke Statin Dosing Therapy Reference: STATIN DOSE THERAPY REFERENCE: * Patients > 75 years receive moderate or high dose statin therapy. * Patients 75 years or YOUNGER should receive HIGH intensity statin dose unless contraindicated. You will be required to document reason for non-treatment if statin daily dose does not meet guidelines. HIGH DOSE STATIN THERAPY DAILY Atorvastatin > than or = to 40 mg Rosuvastatin > than or = to 20 mg Amlodipine + Atorvastatin > than or = to 2.5/40 mg Ezetimibe + Simvastatin 10/80 mg Simvastatin 80mg Discharge Plan Admission Admit Date/Time: 05/21/24 23:50 Primary Reason for Your Visit: vaginal delivery Attending Provider: Grady,Lacey Primary Care Provider: Care Physician,No Primary Discharge Orders/Prescriptions Prescriptions: New acetaminophen 500 mg Tablet 1,000 mg PO Q6H PRN PRN (Reason: Pain 1-10 Or Fever) Qty: 0 0RF nifedipine 30 mg Tablet Extended Release 24hr 30 mg PO DAILY Qty: 30 1RF ibuprofen 600 mg Tablet 600 mg PO Q6H PRN PRN (Reason: Pain Score 1-10) Qty: 0 0RF Continued One-A-Day -1 27 mg iron- 800 mcg-235 mg capsule 1 cap PO DAILY Discontinued All Day Allergy (cetirizine) 10 mg capsule 10 mg PO DAILY PRN (Reason: allergies) aspirin 81 mg capsule 81 mg PO DAILY Referrals / Follow Up: Care Physician,No Primary [Primary Care Provider] - Disposition Disposition (needs filled in before D/C Order can be placed): Home, Self Care
[2024-05-23] MEDS: Acetaminophen 500 MG Tablet 1000 MG PO (10:38)
[2024-05-23 12:04] VITALS: BP 123/80; PULSE 74; RESP 16; TEMP 36.2; O2SAT 98
--- NOTE | 2024-05-23 15:50 | CASEMGMT ---
Social Work Assessment Labor and Delivery Unit Patient Address: [place] [address] Phone number: [phone] Date of Referral: 05/22/2024 Time of Referral: 07:20 Referred By: Lacey Grady Date of Intervention: ?05/23/24 Time of Intervention: 15:50 Reason for Referral: Anxiety History obtained from: Medical records, mother of baby (MOB) and father of baby (FOB).? Household composition: MOB, FOB (Yaw) and their 2 children; 22 month old daughter Lotus and daughter Shiv, born on 05/22/2024. Patient's parent/guardian status: MOB and FOB are .? Both are actively involved and will be providing care for baby. MOB denied any concerns with domestic violence and described a positive and supportive relationship with the FOB. Medical History: ?: 2, Para, now 2. MOB received care through [facility] beginning at 9 weeks and 0 days. Visits were observed to be routine. Apgars: 7 and 9. Weight: 6pounds, 8 ounces. Die Baker: Dr. Desir. Educational Status: MOB and FOB denied any issues or concerns with reading or writing. MOB and FOB both earned their Master?s degree in Education. Financial Status: MOB and FOB reported their income is sufficient to meet the needs of their family at this time. 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 MOB gets 6 weeks of maternity leave and the FOB gets 2 weeks of paternity leave which he is planning on spreading out over a period of time, taking 1-2 days off each week. Infant Supplies: MOB and FOB reported they have all the supplies they need for baby at this time including but not limited to: Car Seat, bassine, crib, diapers, bottles, breast pump and clothing. Childcare/Caregiver(s):? MOB reported. During the time the MOB and FOB are working, ?s maternal grandmother (MGM) and paternal grandmother (PGM) will split caregiving with . Transportation:? MOB and FOB reported they are both licensed drivers and have a reliable vehicle to take baby to and from all medical appointments. No transportation issues identified. Programs/Agencies Involved: MOB and FOB denied any current programs or agencies involved at this time. Children Services/Legal Issues:? Denied. Behavioral Health Issues: ??Mental Health History: ?CHRISTIANO reported she had some anxiety after her first which she felt was normal levels of anxiety after someone gives however denied any formal diagnosis, treatment and/or medication. MOB stated she is doing fine, denied any current levels of anxiety but stated she?s sure she will have some at some point and feels confident with being able to manage it. ?FOB denied any history of mental health. ?Substance Use History: MOB and FOB both denied. ?Family History: MOB and FOB denied on both sides of their family. ???Drug Screens: ?None obtained at the time of this admission. ? Family/Social Stressors: ?MOB and FOB denied any current family or social stressors. Support Systems: Ample.? CHRISTIANO identified her biggest supports as the FOB, both of their parents, both of their siblings and both of their aunts and uncles. Depression/Shaken Baby/Safe Sleeping: eligibility worker provided verbal and written education on PPD, Safe Sleeping and Shaken Baby.? Parents verbalized an understanding. ??? ASSESSMENT:? MOB and FOB provided consent to social work visit. Upon arrival, MOB ?was sitting in a chair and the FOB was sitting nearby on a couch holding .? Both MOB and FOB were verbally engaged and cooperative and denied any issues/concerns/stressors at this time.? Land Surveying Party Chief observed positive interaction between the MOB and FOB and also observed positive interaction between the FOB and as well as towards the MOB and once the FOB left and handed to the MOB. Both MOB and FOB were observed to be very gentle and attentive with . No observable or reported concerns. At the end of the assessment, social work assistant requested to talk with the MOB alone which MOB and FOB were both agreeable to. CHRISTIANO reported feeling safe in her home, denied any previous or current DV, denied any concerns with drug or alcohol abuse with either herself or the FOB as well as any unmanaged MH concerns with herself or the FOB. Safe Plan of Care for infant related to substance use: N/A; not needed. ? PLAN:? Baby to be discharged home when ready.? eligibility worker also provided written information on depression, depression resources and Help Me Grow as additional resources offered by social work assistant which MOB and FOAdriel accepted. No other services requested or indicated. Latoya Walton, MANAGER EMPLOYMENT, [employer]
[2024-05-23 16:50] VITALS: BP 122/79; PULSE 79; RESP 16; TEMP 36.5; O2SAT 98
== END 2024-05-23 17:15 | disposition home or self-care (01) | DRG 807 ==
LOC: WPOUT 23:52 → WP 23:52
PROVIDERS: Admitting Provider Advanced Practice Midwife; Referring Provider Advanced Practice Midwife; Visit Provider Advanced Practice Midwife
DX: O98.82 Other maternal infectious and parasitic diseases complicating childbirth (principal); Z37.0 Single live birth; B95.1 Streptococcus, group B, as the cause of diseases classified elsewhere; O13.5 Gestational [pregnancy-induced] hypertension without significant proteinuria, complicating the puerperium; O76 Abnormality in fetal heart rate and rhythm complicating labor and delivery; Z88.0 Allergy status to penicillin; Z3A.39 39 weeks gestation of pregnancy; Z79.82 Long term (current) use of aspirin
CPT/HCPCS: 36415; 59025; 59050; 80053; 85025; 86780; 86850; 86900; 86901; 99221; G0378; J2405